=== PATIENT | male | born 1975 | race Hispanic/Latino ===

== ENCOUNTER 2017-08-19 17:44 | Emergency (ER) | payer OTHER ==
[2017-08-19 17:58] VITALS: O2SAT 98
--- NOTE | 2017-08-19 18:24 | RAD ---
PROCEDURE: Radiographs of the Right Shoulder HISTORY: fall on outstretched right arm one hour ago COMPARISON: No prior. FINDINGS: BONES: Normal. No fracture. JOINTS: There is anterior dislocation of the glenohumeral joint. SOFT TISSUES: Normal. OTHER FINDINGS: None. IMPRESSION: Anterior dislocation of the humeral head relative to the glenoid fossa.
[2017-08-19] MEDS ORDERED: Midazolam 2 MG/2 ML VIAL IV ONE (18:30)
[2017-08-19] MEDS ORDERED: Morphine 4 MG/ML VIAL ONE (18:32)
--- NOTE | 2017-08-19 18:36 | ED PDOC ---
Upper Extremity Pain/Injury Time Seen by Provider: 08/19/17 18:03 Chief Complaint (Nursing): Upper Extremity Problem/Injury Chief Complaint (Provider): Right shoulder pain History Per: Patient History/Exam Limitations: no limitations Additional Complaint(s): 41 y/o male presents to the emergency department after [place] sustaining an injury to the right shoulder. Patient has his arm stretched out because he cannot move his shoulder. Denies head injury or any further medical complaints. Past Medical History Reviewed: Historical Data, Nursing Documentation, Vital Signs Vital Signs: Last Vital Signs Temp 97.2 F L 08/19/17 17:57 Pulse 68 08/19/17 17:57 Resp 16 08/19/17 17:57 BP 174/97 H 08/19/17 17:57 Pulse Ox 98 08/19/17 17:57 - Medical History PMH: No Chronic Diseases - Surgical History Surgical History: No Surg Hx - Family History Family History: States: No Known Family Hx - Home Medications Home Medications: Ambulatory Orders Medication Instructions Recorded Naproxen [Naprosyn] 500 mg PO BID PRN #20 tablet 08/19/17 - Allergies Allergies/Adverse Reactions: Allergies Allergy/AdvReac Type Severity Reaction Status Date / Time Penicillins Allergy RASH Verified 08/19/17 17:53 Review of Systems ROS Statement: Except As Marked, All Systems Reviewed And Found Negative (As per HPI, otherwise negative) Constitutional: Negative for: Other (Head injury) Musculoskeletal: Positive for: Shoulder Pain (Right) Physical Exam - Reviewed Nursing Documentation Reviewed: Yes Vital Signs Reviewed: Yes - Physical Exam Appears: Positive for: Non-toxic, No Acute Distress Head Exam: Positive for: ATRAUMATIC, NORMAL INSPECTION, NORMOCEPHALIC Skin: Positive for: Normal Color, Warm, Dry Extremity: Positive for: Tenderness (Dislocation of the right shoulder; confirmed by x-ray), Other (Radial pulses and motor functions intact. ). Negative for: Normal ROM Neurologic/Psych: Positive for: Alert, Oriented (x3) - ECG O2 Sat by Pulse Oximetry: 98 (RA) Pulse Ox Interpretation: Normal Medical Decision Making Medical Decision Making: Time: 1804 Initial Impression: Right shoulder Injury Initial Plan: --IV Insertion --Morphine 2 mg IVP --Right Shoulder x-ray --Reevaluation Time: 1830 --Versed INJ 2 mg IV --Morphine 4 mg IV --Right shoulder dislocation; confirmed by x-ray Time: 1821 --Right shoulder x-ray FINDINGS: BONES: Normal. No fracture. JOINTS: There is anterior dislocation of the glenohumeral joint. SOFT TISSUES: Normal. OTHER FINDINGS: None. IMPRESSION: Anterior dislocation of the humeral head relative to the glenoid fossa. Time: 1857 --Right Shoulder x-ray Scribe~Attestation: Documented by Steffi Medrano, acting as a scribe for Lisa Castellano MD. Provider Scribe~Attestation: All medical record entries made by the Scribe were at my direction and personally dictated by me. I have reviewed the chart and agree that the record accurately reflects my personal performance of the history, physical exam, medical decision making, and the department course for this patient. I have also personally directed, reviewed, and agree with the discharge instructions and disposition. Procedures - Joint Reduction Joint Reduction Site: shoulder (R) Conscious Sedation: Yes Reduction Attempts: 2 Pre-Procedure NV Exam: Yes Post Joint Reduction Film: joint reduced (patient able to touch his left shoulder with his affected arm (R) with the right hand) Disposition - Clinical Impression Clinical Impression: Shoulder dislocation - Patient ED Disposition Is Patient to be Admitted: No Doctor Will See Patient In The: Office Counseled Patient/Family Regarding: Diagnosis, Need For Followup, Rx Given - Disposition Referrals: Hannah Powell [Outside] Disposition: Routine/Home Disposition Time: 21:00 Condition: IMPROVED Prescriptions: Naproxen [Naprosyn] 500 mg PO BID PRN #20 tablet PRN Reason: Pain, Moderate (4-7) Instructions: Shoulder Dislocation (ED) Forms: Hannah Kaur (Slovak) - POA Present On Arrival: Falls Or Trauma
[2017-08-19] MEDS ORDERED: Naproxen 500 MG TAB PO ONE ×2 (20:57→21:15)
[2017-08-19 21:59] VITALS: BP 137/89; PULSE 70; RESP 16; TEMP 98.8
--- NOTE | 2017-08-20 09:05 | RAD ---
PROCEDURE: Radiographs of the Right Shoulder HISTORY: post reduction COMPARISON: Right shoulder radiographs 08/19/2017 6:06 p.m.. FINDINGS: BONES: No acute fracture or destructive bony lesion identified. JOINTS: Glenohumeral joint dislocation has been reduced with noted without definite fracture appreciated. Acromioclavicular joint appears stable. SOFT TISSUES: Normal. OTHER FINDINGS: None. IMPRESSION: Adequate reduction of right glenohumeral dislocation. No interval fracture appreciable.
== END 2017-08-19 22:17 | disposition home or self-care (01) ==
LOC: H.ER 17:44
DX: S43.001A Unspecified subluxation of right shoulder joint, initial encounter (principal); W19.XXXA Unspecified fall, initial encounter; Y92.89 Other specified places as the place of occurrence of the external cause; Z88.0 Allergy status to penicillin
CPT/HCPCS: 23655; 73030; 96374; 96375; 96376; 99285; J2250; J2270